=== PATIENT | male | born 1945 | race Caucasian/White ===

== ENCOUNTER 2016-12-11 12:52 | Inpatient (IN) | payer MEDICARE, MEDICAID ==
[~2016-12-11] VITALS: Ht 182.8 cm; Wt 136.2 kg
--- NOTE | ~2016-12-11 | EKG ---
[place], [place] ELECTROCARDIOGRAM REPORT NAME: BENIGNO PERSON UNIT #: [id number] ROOM: 506 DOCTOR: JEANETTE MAE MD BIRTHDATE: [birth year] DOS: 12/11/2016 TIME: 1349 hours. FINDINGS: 1. Normal sinus rhythm at 96 beats per minute. 2. Possible old inferior wall CT. 3. Mild ST segment depression with T-wave inversion in lateral leads raised the possibility of ischemia. 4. An abnormal ECG. 5. No previous tracing is available for comparison. JEANETTE MAE MD CM:EKGRPT:ELECTROCARDIOGRAM REPORT 40 20 JEANETTE MAE MD
[~2016-12-11 12:52] MED LIST: ANAPROX DS550 MG PO; CATAPRES0.1 MG PO; LOPRESSOR25 MG PO; METOPROLOL25 MG PO; NKHM; ULTRAM50 MG PO
[2016-12-11 13:16] VITALS: BP 152/79
[2016-12-11] MEDS ORDERED: HCTZ/TRIAMTEREN1 CA2 PO (13:17)
[2016-12-11] MEDS ORDERED: LISINOPRIL20 MG PO (13:18)
[2016-12-11] MEDS ORDERED: VITAMIN D50000 I3 PO (13:18)
[2016-12-11] MEDS ORDERED: AMLODIPINE BESYL5 MG PO (13:18)
[2016-12-11 13:49] LABS: BASO % 0.3 % (0.0-1.0); EOS # 0.1 10*3/uL (0.0-0.4); EOS % 0.8 % (1.0-4.0); HEMATOCRIT 50.7 % (42.0-52.0); HEMOGLOBIN 16.4 g/dl (14.0-18.0); IG # 0.1 10*3/uL (0.0-0.1); LYMPH # 1.4 10*3/uL (1.3-4.4); LYMPH % 12.9 % (27.0-41.0); MEAN CELL VOLUME 97.5 fl (80.0-94.0); MEAN CORPUSCULAR HGB 31.5 pg (27.0-31.0); MEAN CORPUSCULAR HGB CONC 32.3 g/dl (33.0-37.0); MEAN PLATELET VOLUME 8.9 fl (9.6-12.3); MONO # 0.6 10*3/uL (0.1-1.0); MONO % 5.8 % (3.0-9.0); NEUT # 8.7 10*3/uL (2.3-7.9); NEUT % 79.3 % (47.0-73.0); PLATELET COUNT AUTOMATED 301 10*3/uL (130-400)
[2016-12-11 13:58] LABS: PROTHROMBIN TIME 10.3 SECONDS (9.0-12.4)
[2016-12-11 14:05] LABS: ALBUMIN 3.4 gm/dl (3.1-4.5); ALKALINE PHOSPHATASE 133 U/L (45-117); BILIRUBIN, TOTAL 0.4 mg/dl (0.2-1.0); BUN 25 mg/dl (7-24); C-REACTIVE PROTEIN 3.58 MG/DL (0-0.3); CARBON DIOXIDE 30 mmol/L (21-32); CHLORIDE 102 mmol/L (98-107); CKMB 2.8 ng/ml (0.5-3.6); CPK 99 U/L (39-308); EST GLOM FILT AFRICAN AMERICAN 59 ml/min; GLUCOSE 125 mg/dL (65-99); MAGNESIUM 2.5 mg/dL (1.5-2.1); POTASSIUM 4.5 mmol/L (3.5-5.1); SGOT/AST 19 IU/L (3-35); SGPT/ALT 19 U/L (12-78); SODIUM 140 mmol/L (136-145); TOTAL PROTEIN 7.3 gm/dL (6.4-8.2)
[2016-12-11 14:08] LABS: TROPONIN I < 0.015 ng/ml (<0.045)
[2016-12-11 15:26] VITALS: BP 124/88
[2016-12-11 15:46] LABS: LA>2 REFLEX 2 HR DRAW NOW
[2016-12-11 16:00] VITALS: BP 137/87
[2016-12-11] MEDS ORDERED: CLONIDINE0.1 MG/21 PO (18:03)
[2016-12-11] MEDS ORDERED: LIPITOR10 MG PO (18:04)
[2016-12-11 20:00] VITALS: BP 142/78
[2016-12-12] VITALS: BP 135/81
[2016-12-12 05:50] LABS: BILIRUBIN NEGATIVE (NEGATIVE); BLOOD NEGATIVE (NEGATIVE); CLARITY CLEAR (CLEAR); COLOR YELLOW (YELLOW); GLUCOSE NEGATIVE (NEGATIVE); KETONE NEGATIVE (NEGATIVE); LEUKO ESTERASE NEGATIVE (NEGATIVE); NITRITE NEGATIVE (NEGATIVE); PH 5.5 (5.0-9.0); PROTEIN NEGATIVE (NEGATIVE); SPECIFIC GRAVITY 1.025 (1.005-1.030)
[2016-12-12 06:04] LABS: URINE REFLEX COMMENT NO (NO)
[2016-12-12 06:14] LABS: BASO % 0.4 % (0.0-1.0); EOS # 0.3 10*3/uL (0.0-0.4); EOS % 2.3 % (1.0-4.0); HEMATOCRIT 46.4 % (42.0-52.0); HEMOGLOBIN 14.6 g/dl (14.0-18.0); IG # 0.1 10*3/uL (0.0-0.1); LYMPH # 2.9 10*3/uL (1.3-4.4); LYMPH % 26.7 % (27.0-41.0); MEAN CELL VOLUME 98.9 fl (80.0-94.0); MEAN CORPUSCULAR HGB 31.1 pg (27.0-31.0); MEAN CORPUSCULAR HGB CONC 31.5 g/dl (33.0-37.0); MEAN PLATELET VOLUME 9.3 fl (9.6-12.3); MONO # 0.8 10*3/uL (0.1-1.0); MONO % 7.6 % (3.0-9.0); NEUT # 6.7 10*3/uL (2.3-7.9); NEUT % 62.1 % (47.0-73.0); PLATELET COUNT AUTOMATED 297 10*3/uL (130-400); RED BLOOD COUNT 4.69 10*6/uL (4.50-5.90); RED CELL DISTRI WIDTH 14.4 % (0-14.5); WHITE BLOOD COUNT 10.9 10*3/uL (4.8-10.8)
[2016-12-12 06:43] LABS: ALBUMIN 2.9 gm/dl (3.1-4.5); ALKALINE PHOSPHATASE 117 U/L (45-117); BILIRUBIN, TOTAL 0.4 mg/dl (0.2-1.0); BUN 21 mg/dl (7-24); CARBON DIOXIDE 30 mmol/L (21-32); CHLORIDE 107 mmol/L (98-107); CHOLESTEROL 135 mg/dL (<200); EST GLOM FILT AFRICAN AMERICAN > 60 ml/min; FREE T4 0.81 ng/dl (0.76-1.46); GLUCOSE 94 mg/dL (65-99); HDL CHOLESTEROL 49 mg/dl (40-60); LDL CHOLESTEROL 72 mg/dL (9-159); SGOT/AST 15 IU/L (3-35); SGPT/ALT 16 U/L (12-78); SODIUM 141 mmol/L (136-145); TOTAL PROTEIN 6.4 gm/dL (6.4-8.2); TRIGLYCERIDES 71 mg/dl (<150); VLDL CHOLESTEROL 14 mg/dL (6-40)
[2016-12-12 07:05] LABS: HEMOGLOBIN A1c 6.1 % (4.8-5.6)
[2016-12-12 08:00] VITALS: BP 93/56
[2016-12-12 08:37] LABS: FOLIC ACID 15.1 ng/mL (>5.38)
[2016-12-12 12:00] VITALS: BP 155/78
[2016-12-12 16:00] VITALS: BP 149/75
[2016-12-12 17:49] VITALS: BP 124/54
[2016-12-12 20:00] VITALS: BP 143/60
[2016-12-13] VITALS: BP 110/50
[2016-12-13 06:58] LABS: ALBUMIN 2.7 gm/dl (3.1-4.5); CARBON DIOXIDE 28 mmol/L (21-32); CHLORIDE 109 mmol/L (98-107); GLUCOSE 117 mg/dL (65-99); POTASSIUM 3.8 mmol/L (3.5-5.1); SODIUM 144 mmol/L (136-145)
[2016-12-13 07:04] LABS: ALKALINE PHOSPHATASE 103 U/L (45-117); BILIRUBIN, TOTAL 0.3 mg/dl (0.2-1.0); BUN 18 mg/dl (7-24); EST GLOM FILT AFRICAN AMERICAN > 60 ml/min; SGOT/AST 14 IU/L (3-35); SGPT/ALT 16 U/L (12-78); TOTAL PROTEIN 5.8 gm/dL (6.4-8.2)
[2016-12-13 08:00] VITALS: BP 147/67
[2016-12-13] MEDS ORDERED: FLUCONAZOLE100 MG PO (11:26)
[2016-12-13] MEDS ORDERED: BACTRIM DS 8001 TAB PO (11:26)
[2016-12-13] MEDS ORDERED: Nystatin Cream15 GM T (11:26)
[2016-12-13] MEDS ORDERED: DOXYCYCLINE100 M3 PO (11:26)
[2016-12-13 12:00] VITALS: BP 140/79
[2016-12-13 16:00] VITALS: BP 153/81
[2016-12-13 20:00] VITALS: BP 122/58
[2016-12-14] VITALS: BP 115/81
[2016-12-14 06:39] LABS: ALBUMIN 2.8 gm/dl (3.1-4.5); ALKALINE PHOSPHATASE 109 U/L (45-117); BILIRUBIN, TOTAL 0.3 mg/dl (0.2-1.0); BUN 18 mg/dl (7-24); CARBON DIOXIDE 31 mmol/L (21-32); CHLORIDE 107 mmol/L (98-107); EST GLOM FILT AFRICAN AMERICAN > 60 ml/min; GLUCOSE 110 mg/dL (65-99); POTASSIUM 4.2 mmol/L (3.5-5.1); SGOT/AST 16 IU/L (3-35); SGPT/ALT 18 U/L (12-78); SODIUM 142 mmol/L (136-145); TOTAL PROTEIN 6.2 gm/dL (6.4-8.2)
[2016-12-14 08:00] VITALS: BP 142/78
[2016-12-14 12:00] VITALS: BP 146/70
[2016-12-14 16:00] VITALS: BP 146/90
[2016-12-14 20:00] VITALS: BP 151/91
[2016-12-15] VITALS: BP 125/73
[2016-12-15 06:35] LABS: ALBUMIN 2.8 gm/dl (3.1-4.5); ALKALINE PHOSPHATASE 101 U/L (45-117); BILIRUBIN, TOTAL 0.4 mg/dl (0.2-1.0); BUN 15 mg/dl (7-24); CARBON DIOXIDE 29 mmol/L (21-32); CHLORIDE 107 mmol/L (98-107); EST GLOM FILT AFRICAN AMERICAN > 60 ml/min; GLUCOSE 95 mg/dL (65-99); POTASSIUM 4.1 mmol/L (3.5-5.1); SGOT/AST 17 IU/L (3-35); SGPT/ALT 18 U/L (12-78); SODIUM 144 mmol/L (136-145); TOTAL PROTEIN 6.3 gm/dL (6.4-8.2)
[2016-12-15 08:00] VITALS: BP 124/87
[2016-12-15 12:00] VITALS: BP 146/96
[2016-12-15] MEDS ORDERED: NATURE'S BLEN2000 IU PO (14:09)
[2016-12-15] MEDS ORDERED: B12,B-12,B 12500 MC1 PO (14:09)
[2016-12-15] MEDS ORDERED: KEFLEX500 M1 PO (14:09)
[2016-12-15 16:00] VITALS: BP 100/52
== END 2016-12-15 16:06 | disposition other institution (70) | DRG 871 ==
LOC: ED 12:52 → 5E 14:24 → EDHOLD 14:24 → 5E 15:06
PROVIDERS: Emergency Medicine; Hospitalist; Internal Medicine Hospice and Palliative Medicine
DX: A41.9 Sepsis, unspecified organism (principal); N17.0 Acute kidney failure with tubular necrosis; L03.112 Cellulitis of left axilla; Z68.41 Body mass index [BMI] 40.0-44.9, adult; R65.20 Severe sepsis without septic shock; E86.0 Dehydration; I10 Essential (primary) hypertension; E78.00 Pure hypercholesterolemia, unspecified; F17.220 Nicotine dependence, chewing tobacco, uncomplicated; E66.01 Morbid (severe) obesity due to excess calories; R73.9 Hyperglycemia, unspecified; E83.41 Hypermagnesemia; D75.89 Other specified diseases of blood and blood-forming organs; E55.9 Vitamin D deficiency, unspecified; R74.8 Abnormal levels of other serum enzymes; Z79.899 Other long term (current) drug therapy; Z80.8 Family history of malignant neoplasm of other organs or systems

== ENCOUNTER 2017-03-08 09:36 | Emergency (ER) | payer MEDICARE ==
[~2017-03-08 09:36] MED LIST changes: +AMLODIPINE BESYL5 MG PO; +B12,B-12,B 12500 MC1 PO; +BACTRIM DS 8001 TAB PO; +CLONIDINE0.1 MG/21 PO; +DOXYCYCLINE100 M3 PO; +FLUCONAZOLE100 MG PO; +HCTZ/TRIAMTEREN1 CA2 PO; +KEFLEX500 M1 PO; +LIPITOR10 MG PO; +LISINOPRIL20 MG PO; +NATURE'S BLEN2000 IU PO; +Nystatin Cream15 GM T; +VITAMIN D50000 I3 PO
[2017-03-08 09:57] LABS: BASO % 0.2 % (0.0-1.0); EOS # 0.2 10*3/uL (0.0-0.4); EOS % 1.2 % (1.0-4.0); HEMATOCRIT 44.9 % (42.0-52.0); HEMOGLOBIN 14.7 g/dl (14.0-18.0); IG # 0.1 10*3/uL (0.0-0.1); LYMPH % 12.5 % (27.0-41.0); MEAN CORPUSCULAR HGB 31.7 pg (27.0-31.0); MEAN CORPUSCULAR HGB CONC 32.7 g/dl (33.0-37.0); MEAN PLATELET VOLUME 8.9 fl (9.6-12.3); MONO # 1.3 10*3/uL (0.1-1.0); MONO % 8.2 % (3.0-9.0); NEUT # 12.6 10*3/uL (2.3-7.9); NEUT % 77.2 % (47.0-73.0); PLATELET COUNT AUTOMATED 244 10*3/uL (130-400); RED BLOOD COUNT 4.63 10*6/uL (4.50-5.90); RED CELL DISTRI WIDTH 13.5 % (0-14.5); WHITE BLOOD COUNT 16.3 10*3/uL (4.8-10.8)
[2017-03-08 10:15] LABS: ALBUMIN 3.3 gm/dl (3.1-4.5); ALKALINE PHOSPHATASE 126 U/L (45-117); BILIRUBIN, TOTAL 0.6 mg/dl (0.2-1.0); BUN 21 mg/dl (7-24); CARBON DIOXIDE 27 mmol/L (21-32); CHLORIDE 102 mmol/L (98-107); EST GLOM FILT AFRICAN AMERICAN > 60 ml/min; GLUCOSE 136 mg/dL (65-99); POTASSIUM 4.4 mmol/L (3.5-5.1); SGOT/AST 14 IU/L (3-35); SGPT/ALT 17 U/L (12-78); SODIUM 136 mmol/L (136-145); TOTAL PROTEIN 7.4 gm/dL (6.4-8.2)
[2017-03-08 10:17] LABS: TROPONIN I < 0.015 ng/ml (<0.045)
[2017-03-08] MEDS ORDERED: MEDROL DOSEPAK4 MG PO (11:17)
[2017-03-08] MEDS ORDERED: VENTOLIN H0.09 MG/AC INH (11:17)
[2017-03-08] MEDS ORDERED: AUGMENTIN 875875 MG PO (11:17)
== END 2017-03-08 12:26 ==
LOC: ED 09:36
PROVIDERS: Emergency Medicine
DX: J20.9 Acute bronchitis, unspecified (principal); I10 Essential (primary) hypertension; E78.00 Pure hypercholesterolemia, unspecified; Z79.899 Other long term (current) drug therapy

== ENCOUNTER 2020-07-07 18:12 | Emergency (ER) | payer MEDICARE ==
[~2020-07-07] VITALS: Ht 182.8 cm; Wt 157.4 kg
[~2020-07-07 18:12] MED LIST changes: +AUGMENTIN 875875 MG PO; +MEDROL DOSEPAK4 MG PO; +VENTOLIN H0.09 MG/AC INH
[2020-07-07 18:32] LABS: BASO % 0.3 % (0.0-1.0); EOS # 0.1 10*3/uL (0.0-0.4); EOS % 1.2 % (1.0-4.0); LYMPH # 1.9 10*3/uL (1.3-4.4); LYMPH % 18.4 % (27.0-41.0); MEAN CELL VOLUME 96.4 fl (80.0-94.0); MEAN CORPUSCULAR HGB 29.5 pg (27.0-31.0); MEAN CORPUSCULAR HGB CONC 30.6 g/dl (33.0-37.0); MEAN PLATELET VOLUME 8.8 fl (9.6-12.3); MONO # 0.6 10*3/uL (0.1-1.0); NEUT # 7.7 10*3/uL (2.3-7.9); NEUT % 73.7 % (47.0-73.0); PLATELET COUNT AUTOMATED 314 10*3/uL (130-400); RED CELL DISTRI WIDTH 15.1 % (0-14.5); WHITE BLOOD COUNT 10.4 10*3/uL (4.8-10.8)
[2020-07-07 18:45] LABS: BILIRUBIN Negative (Negative); BLOOD 3+ (Negative); CLARITY Cloudy (Clear); COLOR Orange (Yellow); GLUCOSE Negative (Negative); KETONE Negative (Negative); LEUKO ESTERASE 2+ (Negative); NITRITE Negative (Negative)
[2020-07-07 18:47] LABS: ALBUMIN 3.3 gm/dl (3.1-4.5); CREATININE 1.74 mg/dL (0.70-1.30); POTASSIUM 4.5 mmol/L (3.5-5.1); TOTAL PROTEIN 7.1 gm/dL (6.4-8.2)
[2020-07-07 18:51] LABS: BACTERIA 1+; EPITHELIAL CELLS 0-2; RBC TNTC rbc/hpf (0-2); WBC 21-30 wbc/hpf (0-5)
[2020-07-07] MEDS ORDERED: CEPHALEXIN500 M1 PO (21:27)
== END 2020-07-07 21:34 | disposition home or self-care (01) ==
LOC: ED 18:12
PROVIDERS: Student in an Organized Health Care Education/Training Program
DX: N39.0 Urinary tract infection, site not specified (principal); Z79.899 Other long term (current) drug therapy

== ENCOUNTER 2022-02-01 14:35 | Emergency (ER) | payer MEDICARE ==
[~2022-02-01] VITALS: Wt 174.6 kg
[~2022-02-01 14:35] MED LIST changes: +'CLONIDINE0.1 MG PO; +ATORVASTATIN CA10 M1 PO; +CEPHALEXIN500 M1 PO; +DOXYCYCLINE HY100 M3 PO; +FUROSEMIDE40 MG PO; +GLIMEPIRIDE4 M1 PO; +POTASSIUM CHLO10 ME4 PO; +RIVASTIGMINE TAR6 M1 PO; +VITAMIN D325 MCG PO
== END 2022-02-01 14:55 | disposition home or self-care (01) ==
LOC: ED 14:35
DX: L98.9 Disorder of the skin and subcutaneous tissue, unspecified (principal)

== ENCOUNTER 2022-03-24 | Inpatient (IN) | payer OTHER ==
[~2022-03-24] VITALS: Ht 190.5 cm; Wt 161.1 kg
[~2022-03-24] MED LIST changes: +CEFUROXIME AXE250 MG PO; +COREG12.5 M1 PO; +ELIQUIS5 M1 PO; +Ipratropium Brom3 ML NEB; +NYSTOP60 GM T
[2022-03-24 00:30] VITALS: BP 107/55
== END 2022-03-24 10:07 | DRG 189 ==
LOC: 5E
PROVIDERS: ADMIT Internal Medicine; ATTEND Internal Medicine
PROC: 5A09357 Assistance with Respiratory Ventilation, Less than 24 Consecutive Hours, Continuous Positive Airway Pressure (ICD-10-PCS; principal; 2022-03-24)
DX: J96.21 Acute and chronic respiratory failure with hypoxia (principal); J96.22 Acute and chronic respiratory failure with hypercapnia; Z51.5 Encounter for palliative care; Z66 Do not resuscitate